=== PATIENT | male | born 1995 | race Caucasian/White ===

== ENCOUNTER → 2020-07-23 | Emergency (ER) | payer OTHER ==
[~2020-07-23] VITALS: Ht 175.3 cm; Wt 92.1 kg
[2020-07-23 07:44] VITALS: BP 132/75
--- NOTE | 2020-07-23 07:59 | NUR ---
COVID SWAB SENT. Patient discharged to home in stable condition. Written and verbal after care instructions given. Patient verbalizes understanding of instruction.
--- NOTE | 2020-07-23 08:09 | NUR ---
UNABLE TO DEPART DUE TO MEDITECH ERROR.
== END | disposition home or self-care (01) ==
LOC: ER 08:27
DX: Z20.828 Contact with and (suspected) exposure to other viral communicable diseases (principal)
CPT/HCPCS: 99283; C9803; U0003

== ENCOUNTER 2021-08-09 22:25 | Emergency (ER) | payer OTHER ==
[~2021-08-09] VITALS: Ht 175.3 cm; Wt 68.0 kg
[2021-08-09 22:38] VITALS: BP 133/84
== END 2021-08-09 22:52 | disposition home or self-care (01) ==
LOC: ER 22:28
DX: U07.1 COVID-19 (principal); J06.9 Acute upper respiratory infection, unspecified
CPT/HCPCS: 87426; 99283; C9803 ×2; U0003